=== PATIENT | male | born 1990 | race Caucasian/White ===

== ENCOUNTER → 2017-04-17 | Outpatient (CLI) | payer BC ==
--- NOTE | 2017-04-17 13:58 | DIAGNOSTIC IMAGING REPORT ---
(CHEST) THORAX WITHOUT CLINICAL HISTORY: PECTUS EXCAVATUM Q67.6 COMPARISON STUDY: No previous studies for comparison. CT DOSE: 239.64 mGy.cm TECHNIQUE: CT of the thorax was performed from the thoracic inlet to the lung bases. Images are reviewed in the axial, sagittal, and coronal planes. IV contrast was not administered for this examination. A dose lowering technique was utilized adhering to the principles of ALARA. FINDINGS: Thyroid: Imaged portions of the thyroid gland are normal in appearance. Thoracic aorta: The thoracic aorta is normal in course and caliber, noting standard 3 vessel arch anatomy. Heart: The heart is normal in size and configuration, without pericardial effusion. Lungs and pleural spaces: No pleural effusions are visualized. There is no focal pulmonary consolidation. There are few scattered tiny lung cysts. There is a 2 mm solid pleural-based left upper lobe pulmonary nodule as visualized on image #[id number]. No further workup is indicated in an average risk patient. Mediastinum: There is no mediastinal lymphadenopathy. Luisa: There is no evidence of pathologic hilar adenopathy given the limitations of a noncontrast study Axilla: Clear. Upper abdomen: There are 2 right lobe hepatic masses measuring 28 mm and 16 mm respectively. Given the patient's age and lack of a known primary malignancy, these are likely benign. Nevertheless these are incompletely assessed on a noncontrast study. MRI the liver would be of benefit for further characterization. Skeletal structures: There is a very mild pectus excavatum deformity. IMPRESSION: 1. Minimal pectus excavatum deformity 2. No evidence of pathologic adenopathy 3. 2 mm pleural-based solid left upper lobe pulmonary nodule. In an average risk patient, no further follow-up is indicated. 4. There are 2 indeterminate right lobe hepatic masses measuring 28 mm and 16 mm respectively. MRI would be of benefit for further characterization. Electronically signed by: Jacky Mcgraw M.D. 04/17/2017 1:56 PM Dictated Date/Time: 04/17/2017 1:48 PM
--- NOTE | 2017-04-17 16:40 | ECHOCARDIOGRAM REPORT ---
*NOTICE TO RECEIVING DEMOCRAT AGENCY This information is strictly Confidential and protected under [place] law. [place] law prohibits you from making any further disclosure of this information unless further disclosure is expressly permitted by the written consent of the person to whom it pertains or is authorized by law. A general authorization for the release of medical or other information is not sufficient for this purpose. Hospital accepts no responsibility if the information is made available to any other person, INCLUDING THE PATIENT. Interpretation Summary * Name: PATRIZIA CHAMBERLAIN Study Date: 04/17/2017 01:42 PM * Patient Location: [facility] HR: 68 * : 1990 (M/d/yyyy) Gender: Male Height: 68 in * Age: 26 yrs Ethnicity: [place] Weight: 140 lb * Ordering Physician: Anastasiya Rod * Referring Physician: Shailesh Low * Performed By: Bharat Greer RCS * * Reason For Study: Pre-Op, Pectus Excavatum * BSA: 1.8 m2 * -- Conclusions -- * Left ventricular systolic function is normal. * No regional wall motion abnormalities noted. * Ejection Fraction = 60-65%. * There is no mitral valve prolapse present. Procedure Details * Left Ventricle The left ventricle is normal in size. There is normal left ventricular wall thickness. Ejection Fraction = 60-65%. Left ventricular systolic function is normal. No regional wall motion abnormalities noted. * Right Ventricle The right ventricle is normal size. The right ventricular systolic function is normal as assessed by tricuspid annular plane systolic excursion (TAPSE) (normal >1.5 cm). * Atria The left atrial size is normal. Right atrial size is normal. No ASD detected; PFO is not assessed. * Mitral Valve The mitral valve is normal in structure and function. There is no mitral valve prolapse present. There is no mitral valve stenosis. Significant mitral regurgitation is absent. * Tricuspid Valve The tricuspid valve is not well visualized, but is grossly normal. There is no tricuspid stenosis. Significant tricuspid regurgitation is absent. * Aortic Valve The aortic valve is normal in structure and function. Aortic stenosis is absent. No aortic regurgitation is present. * Pulmonic Valve The pulmonary valve is not well seen, but the Doppler examination is normal without significant regurgitation or stenosis. * Great Vessels The aortic root is normal size. The pulmonary artery is not well visualized, but is probably normal size. * Pericardium/Pleural There is no pericardial effusion. * Great Vessels Normal inferior vena cava size and collapsability with sniff indicates a normal right atrial pressure of 3 mmHg * * MMode 2D Measurements and Calculations * IVSd 0.68 cm * * LVIDd 4.0 cm * LVIDs 2.7 cm * LVPWd 0.75 cm * * IVS/LVPW 0.90 * FS 32.3 % * EDV(Teich) 69.5 ml * ESV(Teich) 26.9 ml * EF(Teich) 61.2 % * * EDV(cubed) 63.4 ml * ESV(cubed) 19.6 ml * EF(cubed) 69.0 % * * LV mass(C)d 80.1 grams * LV mass(C)dI 45.6 grams/m\S\2 * * SV(Teich) 42.5 ml * SI(Teich) 24.2 ml/m\S\2 * SV(cubed) 43.7 ml * SI(cubed) 24.9 ml/m\S\2 * * Ao Arch Diam (Proximal trans.) 2.7 cm * * LVOT diam 1.9 cm * LVOT area 2.9 cm\S\2 * * EDV(MOD-sp4) 60.1 ml * ESV(MOD-sp4) 21.0 ml * EF(MOD-sp4) 65.1 % * * EDV(MOD-sp2) 65.4 ml * ESV(MOD-sp2) 12.2 ml * EF(MOD-sp2) 81.3 % * * SV(MOD-sp4) 39.1 ml * SI(MOD-sp4) 22.3 ml/m\S\2 * * SV(MOD-sp2) 53.2 ml * SI(MOD-sp2) 30.3 ml/m\S\2 * * * Doppler Measurements and Calculations * Ao V2 max 95.8 cm/sec * Ao max PG 3.7 mmHg * Ao max PG (full) 0.11 mmHg * ROGELIO(V,A) 2.9 cm\S\2 * ROGELIO(V,D) 2.9 cm\S\2 * * LV V1 max PG 3.6 mmHg * * LV V1 max 94.3 cm/sec * * TR max gin 190.7 cm/sec * *
== END | disposition home or self-care (01) ==
LOC: C.CTS 13:15
PROVIDERS: ATTEND Family Medicine
DX: Q67.6 Pectus excavatum (principal); R91.1 Solitary pulmonary nodule; K76.89 Other specified diseases of liver

== ENCOUNTER → 2017-04-23 | Outpatient (CLI) | payer BC ==
[~2017-04-23] MED LIST: GADOXETATE DISODIUM (NON-WT BASED PROCEDURE) IV PRN
--- NOTE | 2017-04-23 15:41 | DIAGNOSTIC IMAGING REPORT ---
LIVER COMBO HISTORY: 26 years-old Male LIVER MASS patient with pectus excavatum deformity presented for a presurgical chest CT on 04/17/2017 which demonstrated 2 indeterminate right lobe hepatic masses measuring up to 28 mm. This is a follow-up study to further evaluate the aforementioned masses. COMPARISON: Chest CT 04/17/2017 TECHNIQUE: Multiplanar multisequence MRI of the liver was obtained utilizing institutional liver protocol. Study was obtained both with and without the use of 10 mL Eovist. FINDINGS: The lung bases appear clear. Inferior cardiac chambers are unremarkable. Pectus excavatum deformity of the chest is partially imaged. There are 2 circumscribed T2 hyperintense and T1 hypointense signal lesions noted involving the posterior right hepatic lobe, the first of which measures 1.6 x 1.7 x 1.7 cm and the second lesion measures 1.9 x 2.9 x 2.9 cm. Both of these lesions demonstrate discontiguous nodular peripheral enhancement with delayed central filling and increased signal on the DWI images. The liver otherwise appears homogeneous and within normal limits. No drop in signal on the out of phase images to suggest fatty infiltration. The gallbladder, pancreas, spleen and adrenal glands are unremarkable. No intrahepatic or extrahepatic biliary ductal dilation or biliary filling defects identified. Bilateral kidneys and bowel also appear unremarkable. No abdominal aortic aneurysm. No adenopathy identified. Bones and soft tissues are unremarkable. The thecal sac demonstrates no high-grade narrowing on these images. IMPRESSION: 1. Two circumscribed T2 hyperintense and T1 hypointense lesions involving the posterior right hepatic lobe, largest of which measures up to 2.9 cm demonstrate discontinuous nodular peripheral enhancement with delayed central filling most compatible with hemangiomas. 2. Pectus excavatum deformity redemonstrated. The above report was generated using voice recognition software. It may contain grammatical, syntax or spelling errors. Electronically signed by: Abenr Sadler M.D. 04/23/2017 3:39 PM Dictated Date/Time: 04/23/2017 11:05 AM
== END | disposition home or self-care (01) ==
LOC: C.MRI 09:45
PROVIDERS: ATTEND Family Medicine
DX: R16.0 Hepatomegaly, not elsewhere classified (principal)

== ENCOUNTER → 2017-08-23 | Outpatient (CLI) | payer BC ==
--- NOTE | 2017-08-26 13:43 | PULMONARY FUNCTION TEST ---
Spirometry shows a normal forced vital capacity. The FEV1 was mildly decreased. The FEV1/FVC ratio were normal. The mid flow rates were decreased to 57% of predicted. The possibility of small airways disease exists. Repeat study done following bronchodilators showed no significant change in function. Lung volumes showed a mildly decreased residual volume with a normal FRC and TLC. Diffusion capacity is normal at 101%.
== END | disposition home or self-care (01) ==
LOC: C.RC 09:15
PROVIDERS: ATTEND Family Medicine
DX: Q67.6 Pectus excavatum (principal)